=== PATIENT | male | born 1980 | race Caucasian/White ===

== ENCOUNTER 2018-02-20 05:50 | Emergency (ER) | payer SELFPAY ==
[~2018-02-20] VITALS: Ht 177.8 cm; Wt 74.0 kg
[~2018-02-20 05:50] MED LIST: ALBU2SYR21; [UNRECOGNIZED DRUG - CODE]
--- NOTE | 2018-02-20 05:55 | NUR ---
PATIENT TO ER BED 3.
[2018-02-20 05:57] VITALS: BP 111/61
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
[2018-02-20] MEDS ORDERED: ALBUTEROL 0.083% 2.5 MG/3 ML NEBU INH ONE ×2 (06:00→06:25)
[2018-02-20] MEDS ORDERED: ALBUTEROL SULFATE/IPRATROPIU 3 ML SOL IH ONE ×2 (06:00→06:25)
[2018-02-20] MEDS ORDERED: predniSONE 20 MG TAB PO ONE (06:00)
[2018-02-20] MEDS ORDERED: PRON INH (06:03)
[2018-02-20] MEDS ORDERED: ACETAMINOPHEN EXTRA STRENGTH 500 MG TAB PO ONE (06:10)
[2018-02-20 07:01] VITALS: BP 111/61
--- NOTE | 2018-02-20 07:01 | NUR ---
Patient discharged with v/s stable, without sob or dyspnea. Written and verbal after care instructions given and explained. Patient alert, oriented and verbalized understanding of instructions. Ambulatory with steady gait. All questions addressed prior to discharge. ID band removed. Patient advised to follow up with PMD. Rx of albuterol, prednisone given. Patient educated on indication of medication including possible reaction and side effects. Opportunity to ask questions provided and answered.
== END 2018-02-20 07:01 | disposition home or self-care (01) ==
LOC: MED 05:50
DX: J45.901 Unspecified asthma with (acute) exacerbation (principal); Z79.899 Other long term (current) drug therapy; Z91.010 Allergy to peanuts; Z91.013 Allergy to seafood; Z91.018 Allergy to other foods
CPT/HCPCS: 94640; 99284; J7512; J7613; J7620

== ENCOUNTER 2018-04-26 07:38 | Emergency (ER) | payer MEDICAID ==
[~2018-04-26] VITALS: Ht 167.6 cm; Wt 73.9 kg
[~2018-04-26 07:38] MED LIST changes: -ALBU2SYR21; +PRON INH; -[UNRECOGNIZED DRUG - CODE]
[2018-04-26 07:45] VITALS: BP 104/59
--- NOTE | 2018-04-26 07:51 | NUR ---
PT AMBULATES TO BED 12
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
[2018-04-26] MEDS ORDERED: ALBUTEROL 0.083% 2.5 MG/3 ML NEBU INH ONE (08:05)
[2018-04-26] MEDS ORDERED: IPRATROPIUM 0.02% 0.5 MG/2.5 ML NEBU INH ONE (08:05)
[2018-04-26] MEDS ORDERED: methylPREDNISolone SS 125 MG/2 ML VIAL IVP ONE (08:05)
[2018-04-26] MEDS ORDERED: cefTRIAXone 1,000 MG in DEXT 5% MINI-BAG PLUS 50 ML IV ONE (08:05)
[2018-04-26] MEDS ORDERED: AZITHROMYCIN 500 MG in DEXTROSE 5% 250 ML IV ONE (08:05)
--- NOTE | 2018-04-26 08:15 | NUR ---
ABG DONE NO ADVERSE REACTIONS NOTED
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
[2018-04-26] MEDS ORDERED: cefTRIAXone 1,000 MG VIAL ONE (08:25)
[2018-04-26] MEDS ORDERED: AZITHROMYCIN 500 MG INJ VIAL IV ONE (08:25)
[2018-04-26 08:35] LABS: BASOPHILS % (AUTO) 0.6 % (0.0-2.0); EOSINOPHILS # (AUTO) 0.6 K/uL (0-0.4); EOSINOPHILS % (AUTO) 8.8 % (0.0-4.0); HEMATOCRIT 45.6 % (36-52); HEMOGLOBIN 15.7 g/dL (12.0-18.0); LYMPHOCYTES # (AUTO) 1.6 K/uL (2.0-11.5); LYMPHOCYTES % (AUTO) 25.4 % (20.5-51.1); MEAN CORPUSCULAR HEMOGLOBIN 31 pg (27-31); MEAN CORPUSCULAR HGB CONC 34 g/dL (33-37); MEAN CORPUSCULAR VOLUME 89.1 fL (80-94); MONOCYTES # (AUTO) 0.5 K/uL (0.8-1.0); MONOCYTES % (AUTO) 7.2 % (1.7-9.3); NEUTROPHILS # (AUTO) 3.6 K/uL (1.8-7.7); PLATELET COUNT (AUTO) 194 K/uL (140-450); RED BLOOD CELL COUNT(AUTO) 5.12 MIL/uL (4.20-6.10); RED CELL DISTRIBUTION WIDTH 13.5 % (11.6-13.7); WHITE BLOOD COUNT (AUTO) 6.3 K/uL (4.8-10.8)
[2018-04-26 08:43] LABS: CARBON DIOXIDE 27.4 mmol/L (21-32); CREATININE 1.2 mg/dL (0.7-1.3); POTASSIUM 3.4 mmol/L (3.5-5.1)
[2018-04-26 08:49] LABS: ALBUMIN 3.2 g/dL (3.4-5.0); TOTAL BILIRUBIN 0.7 mg/dL (0.0-1.0)
[2018-04-26] MEDS ORDERED: KETOROLAC 60 MG/2 ML VIAL IM ONE (10:50)
[2018-04-26] MEDS ORDERED: HYDROcodone/APAP 5/325 MG 1 TAB TAB PO ONE (10:50)
--- NOTE | 2018-04-26 11:00 | NUR ---
COVERING CARE FOR NURSE GRACE
--- NOTE | 2018-04-26 11:02 | NUR ---
PT TAKEN TO CT IN [place]
--- NOTE | 2018-04-26 11:43 | NUR ---
patient medicated for pain
[2018-04-26 13:15] VITALS: BP 115/62
--- NOTE | 2018-04-26 13:16 | NUR ---
Patient discharged with v/s stable. Written and verbal after care instructions given and explained. Patient alert, oriented and verbalized understanding of instructions. Ambulatory with steady gait. All questions addressed prior to discharge. ID band removed. Patient advised to follow up with PMD. Rx of TORADOL,ALBUT.INH,ALBUT./ATROV. NEBULIZER given. Patient educated on indication of medication including possible reaction and side effects. Opportunity to ask questions provided and answered.
== END 2018-04-26 13:16 | disposition home or self-care (01) ==
LOC: MED 07:38
DX: S20.219A Contusion of unspecified front wall of thorax, initial encounter (principal); J45.901 Unspecified asthma with (acute) exacerbation; Z91.02 Food additives allergy status; Z91.010 Allergy to peanuts; Z91.013 Allergy to seafood; X58.XXXA Exposure to other specified factors, initial encounter; Y93.89 Activity, other specified; Y99.8 Other external cause status; Y92.89 Other specified places as the place of occurrence of the external cause
CPT/HCPCS: 36415; 36600; 71045; 71250; 74176; 80053; 82803; 84484; 85025; 87040; 93005; 94640; 96365; 96367; 96372; 96375; 99285; J0456; J0696; J1885; J2930; J7613; J7644; Q0092